=== PATIENT | female | born 1975 | race Asian ===

== ENCOUNTER → 2017-10-30 08:14 | Outpatient (CLI) | payer OTHER, SELFPAY ==
--- NOTE | 2017-10-30 08:16 | DI.US.S_ITS ---
PROCEDURE: US OB LIMITED INDICATIONS: circumvallate placenta, eval growth OUTSIDE/PRIOR DATING DATA: Last menstrual period (LMP): 03/21/2017. LMP-based estimated date of delivery (JORGE): 12/26/2017. First dating scan (date and location): 08/18/2017. Estimated date of delivery (JORGE) from first dating scan: 12/22/2017. TECHNIQUE: Real-time scanning was performed of the fetus, with image documentation and biometric measurements. Endovaginal scanning: Not required COMPARISON: [facility], , OB COMPLETE 14WKS OR MORE, 08/18/2017, 9:32. FINDINGS: General: A single living intrauterine gestation is present. Presentation: Vertex. Placenta: Placental position is anterior, without previa or other abnormality. Amniotic fluid index: 16.2 cm, normal range is 5-24 cm. heart rate: 147 beats per minute. Maternal cervical canal: 3.9 cm long. Normal lower limit is 2.5 cm. biometrics: Biparietal diameter: 32 weeks 6 days Head circumference: 32 weeks 2 days Abdominal circumference: 32 weeks one day Femur length: 32 weeks 3 days Estimated gestational age from initial scan: 32 weeks 3 days Composite gestational age from present scan: 32 weeks 3 days, normal growth Estimated weight and percentile: 1947 g at the 36th percentile Measurement variability for biometric dating: +/- 7 days from 14 weeks to 15 weeks 6 days gestation, +/- 10 days from 16 weeks to 21 weeks 6 days gestation, +/- 2 weeks from 22 weeks to 27 weeks 6 days gestation, +/- 3 weeks for 28 weeks gestation or later. weight reference: 4500 g or EFW >90/95% is considered macrosomia or large for gestational age. EFW <10% is small for gestational age. EFW 5% or less is considered intra-uterine growth restriction. Other: Not applicable. IMPRESSION: Single, live intrauterine gestation in Vertex lie showing composite gestational age of 32 weeks 3 days, normal growth. Dictated by: Sohail Dow M.D. on 10/30/2017 at 9:49 Approved by: Sohail Dow M.D. on 10/30/2017 at 9:53
== END ==
PROVIDERS: Family Provider Family Medicine; PCP Family Medicine; Visit Provider Family Medicine
DX: Z34.93 Encounter for supervision of normal pregnancy, unspecified, third trimester (principal); Z3A.32 32 weeks gestation of pregnancy
CPT/HCPCS: 76815

== ENCOUNTER → 2017-11-24 11:25 | Outpatient (CLI) | payer OTHER, SELFPAY | PROVIDERS: Family Provider Family Medicine; PCP Family Medicine; Visit Provider Family Medicine | DX: Z53.9 Procedure and treatment not carried out, unspecified reason (principal) ==

== ENCOUNTER 2017-11-24 12:29 | Outpatient (CLI) | payer OTHER, SELFPAY ==
--- NOTE | 2017-11-24 13:06 | PM.OBTRLD ---
Visit Information Visit Information Date of evaluation: 11/24/17 Primary OB Provider: Sharri William Reason for Evaluation: Yes other Comments/Additional reasons for admission: Advanced maternal age PFSH Medical History Chronic sinusitis (Acute) (spontaneous vaginal delivery) (Acute) Family History Father Tuberculosis Mother Hypertension CVA (cerebral vascular accident) Social History marital status: Smoking Status: Never smoker alcohol intake: never substance use type: does not use Evaluation Evaluation Baseline heart rate: 140 Variability: Moderate (11-25) monitor accelerations: Present monitor decelerations: Absent Category of Tracing: I Diagnosis, Plan/Disposition Final Diagnosis (1) Advanced maternal age (AMA) in : Current Visit: Yes Status: Acute (2) 35 weeks gestation of : Current Visit: Yes Status: Acute Plan/Disposition Plan: Weekly NST for AMA
[2017-11-24 15:19] LABS: Urine N gonorrhoeae NOT DETECTED
[2017-11-24 15:24] LABS: Urine Chlamydia NOT DETECTED
== END 2017-11-24 13:27 | disposition home or self-care (01) ==
LOC: LABOR 13:40 → OB 11-28 14:06
PROVIDERS: PCP Family Medicine; Visit Provider Family Medicine
DX: Z34.83 Encounter for supervision of other normal pregnancy, third trimester (principal); Z3A.35 35 weeks gestation of pregnancy
CPT/HCPCS: 59025; 87491; 87591; G0378; G0379

== ENCOUNTER 2017-12-04 09:20 | Outpatient (CLI) | payer OTHER, SELFPAY | END 2017-12-04 10:03 | disposition home or self-care (01) | LOC: LABOR 10:05 → OB 12-06 09:16 | PROVIDERS: PCP Family Medicine; Visit Provider Family Medicine | DX: O46.93 Antepartum hemorrhage, unspecified, third trimester (principal); Z3A.36 36 weeks gestation of pregnancy | CPT/HCPCS: 59025; 87653; G0378; G0379 ==

== ENCOUNTER → 2017-12-04 11:02 | Outpatient (CLI) | payer OTHER, SELFPAY ==
--- NOTE | 2017-12-04 11:09 | PM.OBTRLD ---
Visit Information Visit Information Date of evaluation: 12/04/17 Primary OB Provider: Sharri William Reason for Evaluation: Yes non-stress test non-stress test reason: other (AMA) [facility] Medical History Chronic sinusitis (Acute) (spontaneous vaginal delivery) (Acute) Family History Father Tuberculosis Mother Hypertension CVA (cerebral vascular accident) Social History marital status: Smoking Status: Never smoker alcohol intake: never substance use type: does not use Evaluation Evaluation Baseline heart rate: 150 Variability: Moderate (11-25) monitor accelerations: Present monitor decelerations: Absent Category of Tracing: I Diagnosis, Plan/Disposition Final Diagnosis (1) Advanced maternal age (AMA) in : Current Visit: No Status: Acute (2) 36 weeks gestation of : Current Visit: Yes Status: Acute Plan/Disposition Plan: Continue weekly NST for AMA.
[2017-12-05 15:38] LABS: Strep Grp B PCR NEG for Grp B Strep
== END ==
PROVIDERS: Family Provider Family Medicine; PCP Family Medicine; Visit Provider Family Medicine
DX: Z36.9 Encounter for antenatal screening, unspecified (principal); Z3A.36 36 weeks gestation of pregnancy
CPT/HCPCS: 87653

== ENCOUNTER 2017-12-12 14:29 | Observation (INO) | payer OTHER, SELFPAY ==
--- NOTE | 2017-12-12 16:55 | P.TNLD_ITS ---
Visit Information Visit Information Date of evaluation: 12/12/17 Primary OB Provider: Sharri William Reason for Evaluation: Yes non-stress test non-stress test reason: other (AMA) [facility] Medical History Chronic sinusitis (Acute) (spontaneous vaginal delivery) (Acute) Family History Father Tuberculosis Mother Hypertension CVA (cerebral vascular accident) Social History marital status: Smoking Status: Never smoker alcohol intake: never substance use type: does not use Evaluation Evaluation Baseline heart rate: 150 Variability: Moderate (11-25) monitor accelerations: Present monitor decelerations: Absent Uterine Contraction Intensity: Mild Category of Tracing: I Diagnosis, Plan/Disposition Final Diagnosis (1) Advanced maternal age (AMA) in : Current Visit: No Status: Acute (2) 38 weeks gestation of : Current Visit: Yes Status: Acute Plan/Disposition Plan: Reactive NST for AMA. Continue weekly NST until induction at 39 weeks.
== END 2017-12-12 17:55 | disposition home or self-care (01) ==
PROVIDERS: Admitting Provider Family Medicine; PCP Family Medicine; Visit Provider Family Medicine
DX: O09.523 Supervision of elderly multigravida, third trimester (principal); Z3A.38 38 weeks gestation of pregnancy
CPT/HCPCS: 59025; 59050; G0378; G0379

== ENCOUNTER 2017-12-15 15:50 | Inpatient (IN) | payer OTHER, SELFPAY ==
[2017-12-15 16:47] LABS: Add Manual Diff / Slide Review NO; Basophils Percent Auto 0.2 % (0-2); Eosinophils Percent Auto 2.1 % (2-4); Hematocrit 36.4 % (36-46); Hemoglobin 12.4 g/dL (12.0-16.0); Lymphocytes Percent Auto 18.5 % (25-40); Mean Corpuscular HGB Conc 33.9 % (30-36); Mean Corpuscular Hemoglobin 31.1 PG (26-34); Mean Corpuscular Volume 91.7 fL (80-100); Monocytes Percent Auto 6.2 % (3-14); Neutrophils Absolute Auto 5600 /uL (3000-5900); Platelet Count 196 X10^3/uL (150-400); Red Blood Cell Count 3.97 X10^6/uL (4.0-5.2); White Blood Cell Count 7.6 X10^3/uL (4.5-11.0)
[2017-12-15] MEDS: LACTATED RINGERS 1,000 ML 100 ML IV (16:50)
--- NOTE | 2017-12-15 16:58 | P.HPOB_ITS ---
OB HPI Date/Time Date of admission: 12/15/17 Date Patient Seen: 12/15/17 Time Patient Seen: 17:21 History of Present Illness Chief complaint: OBS : 2 Para: 1 Estimated Date of Delivery: 12/26/17 Estimated Gestational Age (weeks): 38w3d Narrative: Marcie Wolfe is a 42 year old [place] female at 38+3 wks gestation by LMP consistent with second trimester US admitted with rupture of membranes and infrequent contractions. Indications Other reason(s) for admission: Rupture of membranes History of Present care: good care Dating criteria: LMP confirmed by 2nd trimester US Ultrasounds: abnormal US findings Abnormal ultrasound findings: Circumvallate placenta seen on initial ultrasound, not seen on follow up ultrasounds with [facility] and at [facility] Obstetrical complications: other (Advanced Maternal Age) Medical complications: none Preadmission Labs Blood type: A (+) positive -: Antibody screen: negative, GBS status: negative, HBsAG: negative, HIV: negative, HSV 1: negative, HSV 2: negative and RPR/VDLR: negative -: Chlamydia screen: detected (Negative NEREYDA later in ) and Gonorrhea screen: not detected -: Rubella: immune and Varicella: immune HCT: 35.6 HCAB: negative PAP: Normal Quad screen: Normal Urine: Neg 1 hr GTT: 90 Prior (ies) History: 04/08/1997 male , [facility] Evaluation Evaluation Baseline heart rate: 150 Variability: Average (6-10) monitor accelerations: Present monitor decelerations: Absent Contraction Frequency (minutes): 10 Category of Tracing: I Cervical dilation (cm): 4 Cervical effacement (%): 90 station: 0 Laboratory results: Laboratory Tests 12/15/17 16:30 WBC 7.6 RBC 3.97 L Hgb 12.4 Hct 36.4 MCV 91.7 MCH 31.1 MCHC 33.9 RDW 13.0 Plt Count 196 Neut % (Auto) 73.0 Lymph % (Auto) 18.5 L Nolan % (Auto) 6.2 Eos % (Auto) 2.1 Baso % (Auto) 0.2 Neut # (Auto) 5600 Non-invasive Membranes Rupture Test: positive [facility] Medical History Chronic sinusitis (Acute) (spontaneous vaginal delivery) (Acute) Family History Father Tuberculosis Mother Hypertension CVA (cerebral vascular accident) Social History marital status: Smoking Status: Never smoker alcohol intake: never substance use type: does not use Meds Home Medications Medication Instructions Recorded Confirmed Type azithromycin 1 gm PO X1 #1 pck 08/28/17 Rx Review of Systems Review of Systems All systems reviewed & are unremarkable except as noted in HPI and below Exam Vital Signs (past 8 hours): Temperature 35.8?, blood pressure 121/77, heart rate 90 Const General: healthy appearing and comfortable HENMT Head: normal to inspection Ears: hearing grossly normal bilaterally Nose: external nose normal Face and sinus: normal facial exam Mouth: oral mucosae normal Teeth and gingiva: dentition normal Throat: posterior oropharynx normal Eyes General: appearance normal, both eyes and all related structures Neck Neck: normal visual inspection Thyroid: thyroid normal Resp Effort & Inspection: normal respiratory effort Auscultation: clear to auscultation bilaterally, no crackles and no wheezes Cardio Rate: regular rate Rhythm: regular rhythm Heart Sounds: S1 normal and S2 normal GI Other: Gravid Neuro General: alert, awake and oriented x3 Extrem General: normal to inspection and no pedal edema Objective Labs Result Diagrams: 12/15/17 16:30 Labs: Laboratory Results - last 24 hr 12/15/17 16:30 WBC 7.6 RBC 3.97 L Hgb 12.4 Hct 36.4 MCV 91.7 MCH 31.1 MCHC 33.9 RDW 13.0 Plt Count 196 Neut % (Auto) 73.0 Lymph % (Auto) 18.5 L Nolan % (Auto) 6.2 Eos % (Auto) 2.1 Baso % (Auto) 0.2 Neut # (Auto) 5600 Assessment and Plan (1) 38 weeks gestation of : Current visit: No Status: Acute (2) Advanced maternal age (AMA) in : Current visit: No Status: Acute Plan: Plan: 42-year-old at 38 and three weeks gestation admitted with rupture of membranes without active labor. GBS negative. Rupture of membranes occurred at 2:30 p.m. with clear fluid. Will have her walk for an hour and if not in a regular contraction pattern will start Pitocin. Patient desires epidural for pain control eventually.
[2017-12-15] MEDS: OXYTOCIN PREMIX 30 UNIT/500 ML PLAST..BAG IV (18:41)
--- NOTE | 2017-12-15 20:39 | PM.OBPRVD ---
Delivery date: 12/15/17 Narrative: VAGINAL DELIVERY NOTE Date 12/15/17 BRIEF HISTORY: Patient is a 42-year-old at 38+3 weeks who gave on 12/15/17 at 20:00. JORGE: 12/26/17 Hospital problems: 38 weeks Advanced Maternal Age Patient presented to the center with spontaneous rupture of membranes with clear fluid which occurred at 2:30 p.m.. On admission she was david every 8-10 minutes so pitocin was started at 6:30 p.m. Patient progressed to complete at 7:56 p.m. and delivered a vigorous female infant at 20:00. delivered JIM with a hand near the face. was placed on mother's abdomen and the umbilical cord was clamped and cut 1 min after delivery. Apgars were nine and nine at one and five minutes. Pitocin bolus given after delivery of . Placenta delivered after active management at 8:05 p.m. and appeared intact with a three-vessel cord. A first-degree left labial laceration was repaired by usual fashion with 4-0 Vicryl after local anesthesia with lidocaine. Mother and infant doing well. Estimated blood loss 300 mL. Needle and sponge counts were correct. The vagina was inspected and no items were left in situ. Patient was doing well with Anabela , her and at bedside.
[2017-12-15 22:22] VITALS: BP 120/60
[2017-12-16] MEDS: PRENATAL VIT,CALC/IRON/FOLIC 1 TABLET 1 TAB PO (09:16)
[2017-12-16] MEDS: DOCUSATE 250 MG CAPSULE PO (09:16)
--- NOTE | 2017-12-16 11:49 | P.DS_ITS ---
History of Present Illness Date Patient Seen: 12/16/17 Time Patient Seen: 11:43 Chief complaint: OBS Narrative: Patient is a 42-year-old now 2 female who delivered via at 38 and 3 weeks gestation on 12/15/17 at 20:00 to a vigorous female . Patient presented to the center with rupture of membranes without active labor. Pitocin was started and patient progressed rapidly to complete. She sustained a first-degree left labial laceration which was repaired. Patient received routine care. Did have Chlamydia infection early in the with negative test of care. course has been uncomplicated. Working on breast-feeding, mother has quite flat nipples and has been using a nipple shield. No issues with voiding, ambulating or eating. Bleeding is moderate. Pain is well controlled with ibuprofen. Infant is doing well. Instructed patient to call for fevers, bleeding through more than a pad an hour or excessive pain. Follow up with Dr. William in clinic in six weeks. Discharge Providers Date of admission: 12/16/17 09:03 Primary care physician: Sharri William DO Consults: 12/15/17 22:10 Consult to Certified Medication Technician Routine Comment: Discharge provider: Sharri William DO Summary Discharge Diagnosis: 38 weeks Spontaneous vaginal delivery Exam Vital Signs (past 8 hours): Exam Temperature 98.5?, blood pressure 115/79, heart rate 75, respirations 16 General: Awake and alert, no acute distress. HEENT: NCAT, EOMI, moist oral mucosa CV: Regular rate and rhythm, no murmurs, rubs or gallops Lungs: CTAB, no wheezes, rales, or rhonchi Abdomen: Soft, nontender; bowel tones active; uterus firm 1 cm below umbilicus Extremities: Warm, no edema, 2+ pedal pulses bilaterally Objective Labs Result Diagrams: 12/15/17 16:30 Labs: Laboratory Results - last 24 hr 12/15/17 12/15/17 16:30 16:30 WBC 7.6 RBC 3.97 L Hgb 12.4 Hct 36.4 MCV 91.7 MCH 31.1 MCHC 33.9 RDW 13.0 Plt Count 196 Neut % (Auto) 73.0 Lymph % (Auto) 18.5 L [place] % (Auto) 6.2 Eos % (Auto) 2.1 Baso % (Auto) 0.2 Neut # (Auto) 5600 Blood Type A Positive Antibody Screen Negative Discharge Plan Discharge Plan Patient Disposition: Home, Self-Care Discharge Med Rec/Prescriptions Prescriptions: New docusate sodium 250 mg Capsule 250 mg PO DAILY Qty: 30 RF: 0 No Action No Known Home Medications RF: 0 Follow up/Referrals: Sharri William DO [Primary Care Provider] - 6 Weeks Discharge Data Primary Care Provider: Sharri William Attending Provider: Sharri William Admit Date/Time: 12/16/17 09:03
[2017-12-16 14:27] VITALS: BP 118/78; PULSE 75; RESP 16; TEMP 37
== END 2017-12-16 17:10 | disposition home or self-care (01) | DRG 775 ==
PROVIDERS: Admitting Provider Family Medicine; Family Provider Family Medicine; PCP Family Medicine; Visit Provider Family Medicine
DX: O32.6XX0 Maternal care for compound presentation, not applicable or unspecified (principal); Z3A.38 38 weeks gestation of pregnancy; Z37.0 Single live birth; O70.0 First degree perineal laceration during delivery
CPT/HCPCS: 59400; 85025; 86850; 86900; 86901; G0378; G0379; J2590

== ENCOUNTER → 2018-01-24 16:01 | Outpatient (CLI) | payer OTHER, SELFPAY ==
[2018-01-24 20:00] LABS: Urine N gonorrhoeae NOT DETECTED
[2018-01-24 20:05] LABS: Urine Chlamydia NOT DETECTED
== END ==
PROVIDERS: Family Provider Family Medicine; PCP Family Medicine; Visit Provider Family Medicine
DX: A74.9 Chlamydial infection, unspecified (principal); O98.819 Other maternal infectious and parasitic diseases complicating pregnancy, unspecified trimester
CPT/HCPCS: 87491; 87591

== ENCOUNTER → 2020-07-18 15:14 | Outpatient (CLI) | payer OTHER, SELFPAY ==
--- NOTE | 2020-07-18 15:15 | DI.MG.S_ITS ---
BILATERAL DIGITAL SCREENING MAMMOGRAM 3D/2D WITH CAD: 07/18/2020 CLINICAL: Routine screening. Baseline exam. No prior exams were available for comparison. The tissue of both breasts is heterogeneously dense. This may lower the sensitivity of mammography. Current study was also evaluated with a Computer Aided Detection (CAD) system. There are grouped coarse calcifications in the left breast at 9 o'clock anterior depth with suggestion of branching distribution. No other significant masses, calcifications, or other findings are seen in either breast. IMPRESSION: INCOMPLETE: NEEDS ADDITIONAL IMAGING EVALUATION The grouped coarse calcifications with possible branched distribution in the left breast are indeterminate. Mediolateral, spot magnification, and additional views are recommended. This exam was interpreted at Station ID: [id number]. NOTE: For mammograms, a report in lay terms will be sent to the patient. Approximately 15% of breast malignancies will not be visualized mammographically. In the management of a palpable breast mass, a negative mammogram must not discourage biopsy of a clinically suspicious lesion. Electronically Signed By: Jovon Avery M.D. at/:07/20/2020 08:36:02 letter sent: Additional Imaging Needed ACR BI-RADS Category 0: Incomplete 3340F
== END ==
PROVIDERS: Family Provider Family Medicine; PCP Family Medicine; Referring Provider Family Medicine; Visit Provider Family Medicine
DX: Z12.31 Encounter for screening mammogram for malignant neoplasm of breast (principal)
CPT/HCPCS: 77063; 77067

== ENCOUNTER → 2020-08-19 14:01 | Outpatient (CLI) | payer OTHER, SELFPAY ==
--- NOTE | 2020-08-19 14:02 | DI.MG.S_ITS ---
UNILATERAL LEFT DIGITAL DIAGNOSTIC MAMMOGRAM 3D/2D WITH ADDITIONAL VIEWS: 08/19/2020 CLINICAL: Additional evaluation requested from prior study. Comparison is made to exam dated: 07/18/2020 [facility]. The tissue of left breast is heterogeneously dense. This may lower the sensitivity of mammography. There is an oval mass with a microlobulated margin and fine pleomorphic calcifications in the left breast at 8 o'clock anterior depth. No other significant masses or calcifications are seen in the breast. IMPRESSION: SUSPICIOUS OF MALIGNANCY The oval mass in the left breast is suspicious of malignancy. A stereotactic biopsy is recommended. This exam was interpreted at Station ID: [id number]. NOTE: For mammograms, a report in lay terms will be sent to the patient. Approximately 15% of breast malignancies will not be visualized mammographically. In the management of a palpable breast mass, a negative mammogram must not discourage biopsy of a clinically suspicious lesion. Electronically Signed By: Dioni Webber M.D., jr/osvaldo:08/19/2020 14:35:47 letter sent: Biopsy Required ACR BI-RADS Category 4: Suspicious abnormality 3344F
== END ==
PROVIDERS: Family Provider Family Medicine; PCP Family Medicine; Referring Provider Family Medicine; Visit Provider Family Medicine
DX: R92.8 Other abnormal and inconclusive findings on diagnostic imaging of breast (principal); N63.24 Unspecified lump in the left breast, lower inner quadrant
CPT/HCPCS: 77065; G0279

== ENCOUNTER → 2021-06-15 13:12 | Outpatient (CLI) | payer OTHER, SELFPAY ==
[2021-06-15 13:57] LABS: COVID19 -Nasal RAPID POSITIVE (Negative)
== END ==
PROVIDERS: Family Provider Family Medicine; PCP Family Medicine; Visit Provider Nurse Practitioner Family
DX: R51.9 Headache, unspecified (principal)
CPT/HCPCS: 87635

== ENCOUNTER → 2023-05-16 09:24 | Outpatient (CLI) | payer OTHER, SELFPAY ==
[2023-05-16 10:14] LABS: Add Manual Diff / Slide Review NO; Basophils Absolute Auto 100 /uL (0-100); Basophils Percent Auto 1.3 % (0-2); Eosinophils Absolute Auto 200 /uL (0-450); Eosinophils Percent Auto 5.1 % (2-4); Hematocrit 42.2 % (36-46); Hemoglobin 14.2 g/dL (12.0-16.0); Lymphocytes Absolute Auto 1300 /uL (1100-4500); Lymphocytes Percent Auto 31.8 % (25-40); Mean Corpuscular HGB Conc 33.6 % (30-36); Mean Corpuscular Hemoglobin 29.3 PG (26-34); Mean Corpuscular Volume 87.1 fL (80-100); Monocytes Absolute Auto 200 /uL (0-900); Monocytes Percent Auto 5.5 % (3-14); Neutrophils Absolute Auto 2300 /uL (1500-7000); Neutrophils Percent Auto 56.3 % (50-75); Platelet Count 196 X10^3/uL (150-400); Red Blood Cell Count 4.84 X10^6/uL (4.0-5.2); Red Cell Distribution Width 11.8 % (11.6-14.8); White Blood Cell Count 4.1 X10^3/uL (4.5-11.0)
[2023-05-16 10:46] LABS: Alanine Aminotransferase 31 IU/L (<35); Albumin 4.3 g/dL (3.5-5.0); Albumin Globulin Ratio 1.3 (1.0-2.8); Alkaline Phosphatase 53 U/L (38-126); Aspartate Aminotransferase 30 IU/L (14-36); Bilirubin Total 0.8 mg/dL (0.2-1.3); Blood Urea Nitrogen 14 mg/dL (7-17); Calcium 9.3 mg/dL (8.4-10.2); Carbon Dioxide 29 mmol/L (22-32); Chloride 103 mmol/L (98-107); Cholesterol 219 mg/dL (140-199); Estimated Glomerular Filt Rate > 60 mL/min (>60); Globulin 3.4 g/dL (1.7-4.1); Glucose 101 mg/dL (70-100); HEMOLYSIS < 15 (0-50); Potassium 4.2 mmol/L (3.4-5.1); Sodium 139 mmol/L (137-145); Total Protein 7.7 g/dL (6.3-8.2); Triglycerides 76 mg/dL (35-150)
[2023-05-16 10:58] LABS: Vitamin D 25 Hydroxy (D3) 35.2 ng/mL (30.0-100.0)
[2023-05-16 11:06] LABS: HDL Cholesterol 52 mg/dL (40-60); LDL Cholesterol Calculated 152 mg/dL (<100)
[2023-05-17 14:06] LABS: Fecal Immunochemical Test Negative (Negative)
== END ==
PROVIDERS: Family Provider Family Medicine; PCP Student in an Organized Health Care Education/Training Program; Referring Provider Student in an Organized Health Care Education/Training Program; Visit Provider Student in an Organized Health Care Education/Training Program
DX: Z00.00 Encounter for general adult medical examination without abnormal findings (principal); Z12.11 Encounter for screening for malignant neoplasm of colon
CPT/HCPCS: 36415; 80053; 80061; 82274; 82306; 84443; 85025

== ENCOUNTER → 2024-11-02 07:54 | Outpatient (CLI) | payer OTHER, SELFPAY ==
--- NOTE | 2024-11-02 07:55 | DI.MG.S_ITS ---
MM screening mammo BI: 11/02/2024. BI-RADS: 2 CLINICAL: 49-year old female for bilateral screening mammogram. Tyrer-Cuzick lifetime risk of 6.6%. No personal or first-degree family history of breast cancer. The patient had a prior left breast biopsy. PRIOR EXAMS 08/21/2020, 08/19/2020, 07/18/2020. MAMMOGRAPHY TECHNIQUE: 2D and 3D (tomosynthesis) digital mammographic views obtained, with additional images as needed for full coverage. Current study was also evaluated with a Computer Aided Detection (CAD) system. DENSITY C. The breasts are heterogeneously dense, which may obscure small masses. MAMMOGRAPHY FINDINGS Right: No suspicious mass, asymmetry, microcalcification, or other abnormality seen. No significant change from comparison. Left: Biopsy marker present on the left. There are no suspicious masses, calcifications, or other findings in the breast. No significant change from comparison. IMPRESSION: Right * No evidence of malignancy. Left * No evidence of malignancy with benign findings. RECOMMENDATIONS Bilateral * Annual screening mammography. OVERALL ASSESSMENT CATEGORY BI-RADS-2: Benign. [employer] recommends annual screening mammography beginning at age 40 for women with average risk of breast cancer. ELECTRONICALLY SIGNED: Constance Balderas M.D. on 11/07/2024 at 09:12:34 AM PT Interpreting Station ID: [id number]
== END ==
LOC: MAMMO 07:54
PROVIDERS: PCP Student in an Organized Health Care Education/Training Program; Referring Provider Student in an Organized Health Care Education/Training Program; Visit Provider Student in an Organized Health Care Education/Training Program
DX: Z12.31 Encounter for screening mammogram for malignant neoplasm of breast (principal); R92.333 Mammographic heterogeneous density, bilateral breasts
CPT/HCPCS: 77063; 77067